=== PATIENT | male | born 1955 | race Caucasian/White ===

== ENCOUNTER 2022-05-20 06:45 | Outpatient (CLI) | payer BC, SELFPAY ==
--- NOTE | ~2022-05-20 | MR_ITS ---
EXAMINATION: MR knee LT wo con DATE: 05/20/2022 07:31 INDICATION: Chronic left knee pain. TECHNIQUE: Magnetic resonance imaging (MRI) of the left knee was performed without intravenous contra st. Sequences included axial PD-weighted FS FSE, coronal PD-weighted FSE and PD-weighted FS FSE, sagi ttal PD-weighted FSE, and sagittal T2-weighted FS FSE. COMPARISON: None. FINDINGS: Medial compartment: There is a complex tear involving body and posterior horn of medial meniscus. There is shallow partia l-thickness cartilage loss of femoral condyle and tibial condyle. Osteophytes are noted. Lateral compartment: There is a complex tear involving body and posterior horn of lateral meniscus. There is shallow parti al-thickness cartilage loss of tibial condyle involving the central articular surface. Femoral cartil age is normal. Osteophytes are noted. Patellofemoral compartment: There is shallow partial-thickness cartilage loss of patellar medial facet. There is cartilage surfac e irregularity of trochlea. Osteophytes are noted. Ligaments and tendons: The anterior and posterior cruciate ligaments are normal. There are changes of prior partial tear of medial collateral ligament with proximal thickening and increased signal intensity. There are changes of prior sprain of fibular collateral ligament characterized by thickening and increased signal inte nsity proximally. There is moderate patellar tendinopathy. There are likely changes of quadriceps ten don repair. Fluid: There is a small knee joint effusion. Osseous/other: There is a 16 mm lesion of increased T2-weighted signal intensity in distal femur, likely an enchondr kavitha. IMPRESSION: 1. Moderate tricompartmental chondrosis. 2. Tears of medial and lateral menisci. 3. Small knee joint effusion. Reviewed, dictated and finalized at location A.
== END 2022-05-20 06:46 | disposition home or self-care (01) ==
PROVIDERS: PCP Physician Assistant; Visit Provider Orthopaedic Surgery
DX: S83.242A Other tear of medial meniscus, current injury, left knee, initial encounter (principal); S83.282A Other tear of lateral meniscus, current injury, left knee, initial encounter; X58.XXXA Exposure to other specified factors, initial encounter; M25.462 Effusion, left knee
CPT/HCPCS: 73721